=== PATIENT | male | born 1955 | race Caucasian/White ===

== ENCOUNTER 2019-12-07 12:44 | Outpatient (CLI) | payer OTHER, SELFPAY ==
--- NOTE | 2019-12-13 15:42 | P.PCNPFT_ITS ---
PFT Interpretation PFT Interpretation: DOS: 12/07/2019 REQUESTING: Juana Vázquez NP REASON FOR TESTING: Shortness of breath PULMONARY FUNCTION TESTS Spirometry: FEV1 99% normal. FVC 86% normal. FEV1% 80% normal. No change with bronchodilator. Normal spirometry. Lung volumes: Total lung capacity 87% normal. Residual volume 79% normal. No air trapping. Airway resistance mildly increased 153%. Diffusion: DLCO is mildly decreased 66%. Flow volume loop: Normal flow volume loop. IMPRESSION: Normal spirometry, lung volumes with mild decrease in diffusion. No change with bronchodilator. Isolated decrease in diffusion can be seen with anemia, early ILD and pulmonary vascular disease. Clinical correlation is rec ommended. Mary Beth Conely MD
== END 2019-12-07 12:45 | disposition home or self-care (01) ==
PROVIDERS: PCP Internal Medicine; Visit Provider Nurse Practitioner
DX: R06.02 Shortness of breath (principal)
CPT/HCPCS: 94060; 94726; 94729

== ENCOUNTER 2019-12-22 15:54 | Outpatient (CLI) | payer OTHER, SELFPAY ==
--- NOTE | ~2019-12-22 | CT_ITS ---
EXAMINATION:CT chest w con DATE: 12/22/2019 16:38 INDICATION: Shortness of breath. TECHNIQUE: Computed tomography (CT) of the chest was performed with 75 mL Omnipaque 350 intravenous c ontrast. Automated exposure control and iterative reconstruction technique were employed. The dose-le ngth product (DLP) was 611.60 mGy-cm. COMPARISON: Chest 2 views 11/04/2019 FINDINGS: There are widespread peripheral reticular opacities with a lower lung predominance. There a re mild groundglass opacities in the peripheral lower lungs. Calcified left lung nodules are consiste nt with old granulomatous disease. No bronchiectasis or honeycombing. No pleural effusion. The heart size is normal. No pericardial effusion. There is mild mediastinal and bilateral hilar lymphadenopath y. There are gallstones in the gallbladder, which is normal in size. There is a 1.6 cm cyst in the li emily. There is mild thoracic spondylosis. IMPRESSION: 1. Mild chronic interstitial lung disease in a pattern of nonspecific interstitial pneumonia (NSIP) v ersus usual interstitial pneumonia (UIP). 2. Mild mediastinal and bilateral hilar lymphadenopathy, likely reactive. Reviewed, dictated and finalized at location A. CTOR SEMICONDUCTOR IMPRESSION: 1. Mild chronic interstitial lung disease in a pattern of nonspecific interstit ial pneumonia (NSIP) versus usual interstitial pneumonia (UIP). 2. Mild mediastinal and bilateral hilar lymphadenopathy, likely reactive.
[2019-12-22 16:26] LABS: Blood Urea Nitrogen 15 mg/dL (8-26); Estimated Glomerular Filt Rate > 60
== END 2019-12-22 15:55 | disposition home or self-care (01) ==
PROVIDERS: PCP Internal Medicine; Visit Provider Nurse Practitioner
DX: R06.02 Shortness of breath (principal); J84.9 Interstitial pulmonary disease, unspecified
CPT/HCPCS: 71260; Q9967

== ENCOUNTER 2022-06-18 10:15 | Outpatient (CLI) | payer OTHER, SELFPAY ==
[2022-06-18 21:00] LABS: Anion Gap 10 mmol/L (8-16); Blood Urea Nitrogen 13 mg/dL (9-20); Calcium 8.6 mg/dL (8.4-10.2); Carbon Dioxide 26 mmol/L (22-30); Chloride 94 mmol/L (98-107); Estimated Glomerular Filt Rate > 60; Glucose 170 mg/dL (65-110); Magnesium 2.1 mg/dL (1.6-2.3); Potassium 4.9 mmol/L (3.4-5.0); Sodium 130 mmol/L (137-145)
== END 2022-06-18 10:16 | disposition home or self-care (01) ==
PROVIDERS: PCP Internal Medicine; Visit Provider Internal Medicine
DX: E87.1 Hypo-osmolality and hyponatremia (principal); E87.5 Hyperkalemia
CPT/HCPCS: 36415; 80048; 83735

== ENCOUNTER 2022-06-20 08:33 | Outpatient (CLI) | payer OTHER, SELFPAY ==
[2022-06-20 20:18] LABS: Sodium Urine Random 12 meq/L
[2022-06-20 20:54] LABS: Anion Gap 10 mmol/L (8-16); Blood Urea Nitrogen 12 mg/dL (9-20); Calcium 8.7 mg/dL (8.4-10.2); Carbon Dioxide 28 mmol/L (22-30); Chloride 92 mmol/L (98-107); Estimated Glomerular Filt Rate > 60; Glucose 122 mg/dL (65-110); Potassium 5.1 mmol/L (3.4-5.0); Sodium 130 mmol/L (137-145)
[2022-06-23 14:39] LABS: Osmolality, Urine 270 mOsm/kg (50-1200)
== END 2022-06-20 08:34 | disposition home or self-care (01) ==
LOC: ANHGOSHLAB 08:34
PROVIDERS: PCP Internal Medicine; Visit Provider Internal Medicine
DX: E87.1 Hypo-osmolality and hyponatremia (principal)
CPT/HCPCS: 36415; 80048; 82533; 83935; 84300; 84443

== ENCOUNTER 2022-07-10 08:56 | Outpatient (CLI) | payer OTHER, SELFPAY ==
[2022-07-10 19:22] LABS: Alanine Aminotransferase 36 U/L (6-50); Albumin Level 4.2 g/dL (3.5-5.1); Alkaline Phosphatase 98 U/L (38-126); Anion Gap 11 mmol/L (8-16); Aspartate Amino Transferase 40 U/L (17-59); Bilirubin,Total 0.4 mg/dL (0.2-1.3); Blood Urea Nitrogen 17 mg/dL (9-20); Calcium 8.7 mg/dL (8.4-10.2); Carbon Dioxide 26 mmol/L (22-30); Chloride 98 mmol/L (98-107); Cholesterol 126 mg/dL (0-200); Estimated Glomerular Filt Rate > 60; Glucose 111 mg/dL (65-110); HDL Direct 26 mg/dL; Potassium 4.7 mmol/L (3.4-5.0); Sodium 135 mmol/L (137-145); Triglycerides 135 mg/dL (<150)
[2022-07-10 19:33] LABS: LDL Cholesterol Direct 59 mg/dL
[2022-07-10 19:52] LABS: Prostate Specific Antigen 1.7 ng/mL (< OR = 4.0)
[2022-07-10 19:56] LABS: Hemoglobin A1C 6.5 % (<5.7)
== END 2022-07-10 08:57 | disposition home or self-care (01) ==
LOC: ANHGOSHLAB 08:57
PROVIDERS: PCP Internal Medicine; Visit Provider Internal Medicine
DX: E11.9 Type 2 diabetes mellitus without complications (principal); Z12.5 Encounter for screening for malignant neoplasm of prostate
CPT/HCPCS: 36415; 80053; 80061; 83036; 84153; G0103

== ENCOUNTER 2022-09-19 08:52 | Outpatient (CLI) | payer OTHER, SELFPAY ==
[2022-09-19 19:37] LABS: Alanine Aminotransferase 25 U/L (6-50); Albumin Level 4.2 g/dL (3.5-5.1); Alkaline Phosphatase 98 U/L (38-126); Anion Gap 11 mmol/L (8-16); Aspartate Amino Transferase 42 U/L (17-59); Bilirubin,Total 0.6 mg/dL (0.2-1.3); Blood Urea Nitrogen 12 mg/dL (9-20); Calcium 8.7 mg/dL (8.4-10.2); Carbon Dioxide 30 mmol/L (22-30); Chloride 94 mmol/L (98-107); Cholesterol 136 mg/dL (0-200); Estimated Glomerular Filt Rate > 60; Glucose 98 mg/dL (65-110); HDL Direct 30 mg/dL; Potassium 4.5 mmol/L (3.4-5.0); Sodium 135 mmol/L (137-145); Triglycerides 132 mg/dL (<150)
[2022-09-19 19:48] LABS: LDL Cholesterol Direct 72 mg/dL
[2022-09-19 20:03] LABS: Hemoglobin A1C 6.2 % (<5.7)
[2022-09-19 20:10] LABS: Creatinine Urine 102.7 mg/dL
[2022-09-19 20:15] LABS: MALB Creatinine Ratio 17.5 mg/g (0-30)
== END 2022-09-19 08:53 | disposition home or self-care (01) ==
LOC: ANHGOSHLAB 08:54
PROVIDERS: PCP Internal Medicine; Visit Provider Internal Medicine
DX: E11.9 Type 2 diabetes mellitus without complications (principal)
CPT/HCPCS: 36415; 80053; 80061; 82043; 83036

== ENCOUNTER 2022-12-20 09:01 | Outpatient (CLI) | payer MEDICARE, OTHER, SELFPAY ==
[2022-12-20 11:25] LABS: Basophils Percent Auto 0.6 % (0.2-1.2); Eosinophils Absolute Auto 0.3 K/mm3 (0-0.3); Eosinophils Percent Auto 4.6 % (0-4.4); Hematocrit 40.7 % (42.0-52.0); Immature Granulocyte Absolute 0.02 K/mm3 (0.00-0.031); Immature Granulocyte Percent A 0.3 % (0-0.5); Lymphocytes Absolute Auto 1.46 K/mm3 (0.9-3.2); Lymphocytes Percent Auto 23.1 % (18.3-44.2); Mean Corpuscular HGB Conc 34.4 g/dl (32-36); Mean Corpuscular Volume 84.4 fl (80-100); Mean Platelet Volume 9.4 fl (7.4-10.4); Monocytes Absolute Auto 0.5 K/mm3 (0.1-0.6); Monocytes Percent Auto 8.6 % (2.6-8.5); Neutrophils Percent Auto 62.8 % (45.5-73.1); Platelet Count Result 214 k/mm3 (150-375); Red Blood Count 4.82 M/mm3 (4.6-6.20); Red Cell Distribution Width 13.1 % (11.5-14.5); White Blood Count 6.3 K/mm3 (4.5-10.0)
[2022-12-20 11:43] LABS: Hemoglobin A1C 5.8 % (<5.7)
[2022-12-20 19:49] LABS: Alanine Aminotransferase 23 U/L (6-50); Albumin Level 4.3 g/dL (3.5-5.1); Alkaline Phosphatase 89 U/L (38-126); Anion Gap 4 mmol/L (8-16); Aspartate Amino Transferase 28 U/L (17-59); Bilirubin,Total 0.6 mg/dL (0.2-1.3); Blood Urea Nitrogen 13 mg/dL (9-20); Calcium 8.6 mg/dL (8.4-10.2); Carbon Dioxide 29 mmol/L (22-30); Chloride 97 mmol/L (98-107); Estimated Glomerular Filt Rate > 60; Glucose 102 mg/dL (65-110); Potassium 4.7 mmol/L (3.4-5.0); Sodium 130 mmol/L (137-145)
== END 2022-12-20 09:02 | disposition home or self-care (01) ==
LOC: ANHGOSHLAB 09:05
PROVIDERS: PCP Internal Medicine; Visit Provider Internal Medicine
DX: E11.9 Type 2 diabetes mellitus without complications (principal); I10 Essential (primary) hypertension
CPT/HCPCS: 36415; 80053; 83036; 85025

== ENCOUNTER 2022-12-24 11:18 | Outpatient (CLI) | payer MEDICARE, OTHER, SELFPAY ==
[2022-12-24 20:40] LABS: Creatinine Urine 114.3 mg/dL
[2022-12-24 20:41] LABS: Sodium Urine Random 35 meq/L
[2022-12-26 21:38] LABS: Osmolality, Urine 510 mOsm/kg (50-1200)
== END 2022-12-24 11:19 | disposition home or self-care (01) ==
LOC: ANHGOSHLAB 11:21
PROVIDERS: PCP Internal Medicine; Visit Provider Internal Medicine
DX: E87.1 Hypo-osmolality and hyponatremia (principal)
CPT/HCPCS: 82570; 83935; 84300

== ENCOUNTER 2023-01-24 13:16 | Outpatient (CLI) | payer MEDICARE, OTHER, SELFPAY ==
[2023-01-24 19:15] LABS: Anion Gap 7 mmol/L (8-16); Blood Urea Nitrogen 14 mg/dL (9-20); Calcium 8.7 mg/dL (8.4-10.2); Carbon Dioxide 28 mmol/L (22-30); Chloride 98 mmol/L (98-107); Estimated Glomerular Filt Rate > 60; Glucose 109 mg/dL (65-110); Potassium 4.9 mmol/L (3.4-5.0); Sodium 133 mmol/L (137-145)
== END 2023-01-24 13:17 | disposition home or self-care (01) ==
LOC: ANHGOSHLAB 13:18
PROVIDERS: PCP Internal Medicine; Visit Provider Internal Medicine
DX: E87.1 Hypo-osmolality and hyponatremia (principal)
CPT/HCPCS: 36415; 80048

== ENCOUNTER 2023-07-31 09:49 | Outpatient (CLI) | payer MEDICARE, OTHER, SELFPAY ==
[2023-07-31 18:41] LABS: Hematocrit 42.8 % (42.0-52.0); Hemoglobin 14.4 g/dL (14.0-18.0); Mean Corpuscular HGB Conc 33.6 g/dl (32-36); Mean Corpuscular Volume 86.1 fl (80-100); Mean Platelet Volume 9.9 fl (7.4-10.4); Platelet Count Result 217 k/mm3 (150-375); Red Blood Count 4.97 M/mm3 (4.6-6.20); Red Cell Distribution Width 13.1 % (11.5-14.5); White Blood Count 6.6 K/mm3 (4.5-10.0)
[2023-07-31 19:14] LABS: Alanine Aminotransferase 28 U/L (6-50); Albumin Level 4.2 g/dL (3.5-5.1); Alkaline Phosphatase 74 U/L (38-126); Anion Gap 14 mmol/L (8-16); Aspartate Amino Transferase 29 U/L (17-59); Bilirubin,Total 0.6 mg/dL (0.2-1.3); Blood Urea Nitrogen 11 mg/dL (9-20); Calcium 7.8 mg/dL (8.4-10.2); Carbon Dioxide 19 mmol/L (22-30); Chloride 95 mmol/L (98-107); Estimated Glomerular Filt Rate > 60; Glucose 113 mg/dL (65-110); Potassium 4.6 mmol/L (3.4-5.0); Sodium 128 mmol/L (137-145)
[2023-07-31 19:55] LABS: Hemoglobin A1C 6.3 % (<5.7)
[2023-08-01 16:21] LABS: Prostate Specific Antigen 1.8 ng/mL (< OR = 4.0)
== END 2023-07-31 09:50 | disposition home or self-care (01) ==
PROVIDERS: PCP Internal Medicine; Visit Provider Internal Medicine
DX: E11.9 Type 2 diabetes mellitus without complications (principal); E87.1 Hypo-osmolality and hyponatremia; I10 Essential (primary) hypertension; J84.112 Idiopathic pulmonary fibrosis; Z12.5 Encounter for screening for malignant neoplasm of prostate; K21.9 Gastro-esophageal reflux disease without esophagitis
CPT/HCPCS: 36415; 80053; 83036; 84153; 85027; G0103

== ENCOUNTER 2023-09-18 08:24 | Outpatient (CLI) | payer MEDICARE, OTHER, SELFPAY ==
[2023-09-18 19:13] LABS: Anion Gap 9 mmol/L (8-16); Blood Urea Nitrogen 13 mg/dL (9-20); Calcium 8.5 mg/dL (8.4-10.2); Carbon Dioxide 28 mmol/L (22-30); Chloride 97 mmol/L (98-107); Estimated Glomerular Filt Rate > 60; Glucose 95 mg/dL (65-110); Potassium 4.9 mmol/L (3.4-5.0); Sodium 134 mmol/L (137-145)
== END 2023-09-18 08:25 | disposition home or self-care (01) ==
PROVIDERS: PCP Internal Medicine; Visit Provider Internal Medicine
DX: E87.1 Hypo-osmolality and hyponatremia (principal)
CPT/HCPCS: 36415; 80048

== ENCOUNTER 2024-02-05 09:43 | Outpatient (CLI) | payer MEDICARE, OTHER, SELFPAY ==
[2024-02-05 13:19] LABS: Basophils Percent Auto 0.5 % (0.2-1.2); Eosinophils Absolute Auto 0.4 K/mm3 (0-0.3); Eosinophils Percent Auto 5.2 % (0-4.4); Hematocrit 44.5 % (42.0-52.0); Hemoglobin 14.5 g/dL (14.0-18.0); Immature Granulocyte Absolute 0.05 K/mm3 (0.00-0.031); Immature Granulocyte Percent A 0.7 % (0-0.5); Lymphocytes Absolute Auto 1.69 K/mm3 (0.9-3.2); Mean Corpuscular HGB Conc 32.6 g/dl (32-36); Mean Corpuscular Hemoglobin 28.7 pg (26-34); Mean Corpuscular Volume 87.9 fl (80-100); Mean Platelet Volume 10.1 fl (7.4-10.4); Monocytes Absolute Auto 0.7 K/mm3 (0.1-0.6); Neutrophils Absolute Auto 4.5 K/mm3 (1.3-6.7); Neutrophils Percent Auto 61.6 % (45.5-73.1); Platelet Count Result 225 k/mm3 (150-375); Red Blood Count 5.06 M/mm3 (4.6-6.20); Red Cell Distribution Width 13.6 % (11.5-14.5); White Blood Count 7.4 K/mm3 (4.5-10.0)
[2024-02-05 13:21] LABS: Alanine Aminotransferase 27 U/L (6-50); Albumin Level 4.3 g/dL (3.5-5.1); Alkaline Phosphatase 89 U/L (38-126); Anion Gap 5 mmol/L (4-12); Aspartate Amino Transferase 49 U/L (17-59); Bilirubin,Total 0.7 mg/dL (0.2-1.3); Blood Urea Nitrogen 15 mg/dL (9-20); Calcium 9.3 mg/dL (8.4-10.2); Carbon Dioxide 28 mmol/L (22-30); Chloride 98 mmol/L (98-107); Estimated Glomerular Filt Rate > 60; Glucose 122 mg/dL (65-110); Potassium 5.1 mmol/L (3.4-5.0); Sodium 131 mmol/L (137-145)
[2024-02-05 19:40] LABS: Hemoglobin A1C 6.2 % (<5.7)
== END 2024-02-05 09:44 | disposition home or self-care (01) ==
LOC: ANHGOSHLAB 09:45
PROVIDERS: PCP Internal Medicine; Visit Provider Internal Medicine
DX: E11.9 Type 2 diabetes mellitus without complications (principal); E22.2 Syndrome of inappropriate secretion of antidiuretic hormone; I10 Essential (primary) hypertension; J84.112 Idiopathic pulmonary fibrosis
CPT/HCPCS: 36415; 80053; 83036; 85025

== ENCOUNTER 2024-08-19 09:46 | Outpatient (CLI) | payer MEDICARE, OTHER, SELFPAY ==
[2024-08-19 18:52] LABS: Basophils Absolute Auto 0.1 K/mm3 (0.0-0.1); Basophils Percent Auto 0.7 % (0.2-1.2); Eosinophils Absolute Auto 0.3 K/mm3 (0-0.3); Eosinophils Percent Auto 3.7 % (0-4.4); Hematocrit 45.5 % (42.0-52.0); Hemoglobin 15.1 g/dL (14.0-18.0); Immature Granulocyte Absolute 0.05 K/mm3 (0.00-0.031); Immature Granulocyte Percent A 0.7 % (0-0.5); Lymphocytes Absolute Auto 1.72 K/mm3 (0.9-3.2); Lymphocytes Percent Auto 23.3 % (18.3-44.2); Mean Corpuscular HGB Conc 33.2 g/dl (32-36); Mean Corpuscular Hemoglobin 28.5 pg (26-34); Mean Corpuscular Volume 85.8 fl (80-100); Mean Platelet Volume 9.7 fl (7.4-10.4); Monocytes Absolute Auto 0.6 K/mm3 (0.1-0.6); Monocytes Percent Auto 8.4 % (2.6-8.5); Neutrophils Absolute Auto 4.7 K/mm3 (1.3-6.7); Neutrophils Percent Auto 63.2 % (45.5-73.1); Platelet Count Result 214 k/mm3 (150-375); Red Cell Distribution Width 13.6 % (11.5-14.5); White Blood Count 7.4 K/mm3 (4.5-10.0)
[2024-08-19 19:25] LABS: Alanine Aminotransferase 30 U/L (6-50); Albumin Level 4.2 g/dL (3.5-5.1); Alkaline Phosphatase 83 U/L (38-126); Anion Gap 7 mmol/L (4-12); Aspartate Amino Transferase 33 U/L (17-59); Bilirubin,Total 0.6 mg/dL (0.2-1.3); Blood Urea Nitrogen 17 mg/dL (9-20); Calcium 8.8 mg/dL (8.4-10.2); Carbon Dioxide 28 mmol/L (22-30); Chloride 96 mmol/L (98-107); Cholesterol 133 mg/dL (0-200); Estimated Glomerular Filt Rate > 60; Glucose 135 mg/dL (65-110); HDL Direct 29 mg/dL; Sodium 131 mmol/L (137-145); Triglycerides 139 mg/dL (<150)
[2024-08-19 19:36] LABS: LDL Cholesterol Direct 71 mg/dL
[2024-08-19 19:51] LABS: Prostate Specific Antigen 1.7 ng/mL (< OR = 4.0)
[2024-08-19 21:42] LABS: Hepatitis C Virus Antibody Negative (Negative)
== END 2024-08-19 09:47 | disposition home or self-care (01) ==
LOC: ANHGOSHLAB 09:47
PROVIDERS: PCP Internal Medicine; Visit Provider Internal Medicine
DX: E22.2 Syndrome of inappropriate secretion of antidiuretic hormone (principal); E11.9 Type 2 diabetes mellitus without complications; Z12.5 Encounter for screening for malignant neoplasm of prostate; I10 Essential (primary) hypertension; Z11.59 Encounter for screening for other viral diseases
CPT/HCPCS: 36415; 80053; 80061; 83036; 84153; 85025; 86803; G0103

== ENCOUNTER 2024-09-28 10:03 | Outpatient (CLI) | payer MEDICARE, OTHER, SELFPAY ==
--- NOTE | ~2024-09-28 | XR_ITS ---
XR foot LT min 3V Ordering provider: Davidson Weiss DO History: . R22.42 - Localized swelling, mass and lump, left lower limb . Comparison: None. FINDINGS: BONES: Fracture in the proximal metaphysis of the proximal phalanx of the little toe. Calcaneal spur. JOINT SPACES: Normal. No tarsal coalition. SOFT TISSUES: Normal. IMPRESSION: Fracture in the proximal metaphysis of the proximal phalanx of the little toe. No significant displac ement.. Reviewed, dictated and finalized at location A. PLANT OPERATOR IMPRESSION: Fracture in the proximal metaphysis of the proximal phalanx of the little toe. No significant displacement..
== END 2024-09-28 10:04 | disposition home or self-care (01) ==
LOC: GOSHIMG 10:04
PROVIDERS: PCP Internal Medicine; Visit Provider Internal Medicine
DX: S92.512A Displaced fracture of proximal phalanx of left lesser toe(s), initial encounter for closed fracture (principal); X58.XXXA Exposure to other specified factors, initial encounter
CPT/HCPCS: 73630

== ENCOUNTER 2024-12-10 08:27 | Outpatient (CLI) | payer MEDICARE, OTHER, SELFPAY ==
--- OUTSIDE RECORDS SUMMARY | 2024-12-10 08:37 | XMS_ITS | Clinical Summary ---
Author Organization [facility] [employer] Address [address] [place] [address] Care Team Providers Care Educational Resource Coordinator Name Role Phone Unavailable Primary Care Provider Unavailabl e Source Comments [facility] [employer],non-owned Affiliates and Associated Physician Practices is amultiple site organization consisting of ambulatory clinics and hospital sitesin [place], [place], [place] and [place]. This disclosure is being madepursuant to the Care Everywhere program and may not contain all information available regarding this patient. Last updated 18.[facility] [employer] Allergies No known active allergies Medications Be aware that medications may not be up to date on this document. Always verify current medications with the patient. No known medications Family History Medical History Relation Name Comments Cancer Father lung to bone Diabetes Maternal Aunt Relation Name Status Comments Father Maternal Aunt Social History Tobacco Use Types Packs/Day Years Used Date Smoking Tobacco: Former Alcohol Use Standard Drinks/Week Comments No 0 (1 standard drink = 0.6 oz pur e alcohol) Sex and Gender Information Value Date Recorded Sex Assigned at Not on file Gender Identity Not on file Sexual Orientation Not on file Last Filed Vital Signs Vital Sign Reading Time Taken Comments Blood Pressure 159/109 04/11/2015 10:07 AM CDT Pulse 59 04/11/2015 10:11 AM CDT Temperature 36.3 C (97.4 F) 04/11/2015 10:12 AM CDT Respiratory Rate 21 04/11/2015 10:11 AM CDT Oxygen Saturation 96% 04/11/2015 10:06 AM CDT Inhaled Oxygen Concentration - - Weight 110.2 kg (243 lb) 04/11/2015 8:44 AM CDT Height 181.6 cm (5' 11.5 ) 04/11/2015 8:44 AM CD T Body Mass Index 33.42 04/11/2015 8:44 AM CDT Plan of Treatment Health Maintenance Due Date Last Done Comments COLOGUARD (AGES 45-75) - COL ON CA SCREENING 1955 COLON MONITORING 1955 COLONOSCOPY - COLON CA SCREENING 1957 CT COLONOGRAPHY - COLON CA SCREENING 1955 Colorectal Cancer Screening 1955 FIT - COLON CA SCREENING 1955 FLEX SIG - COLON CA SCREENING 1955 LIPID TESTING 1955 HEPATITIS C SCREENING 10/04/1975 DTAP/TDAP/TD VACCINES (1 - Tdap) 1976 PNEUMOCOCCAL VACCINE 50+ (1 of 1 - PCV) 2007 ZOSTER VACCINE (1 of 2) 2007 AAA SCREENING 2022 COVID-19 VACCINE (1 - 2023-2 5 season) 2024 INFLUENZA VACCINE (#1) 2024 DEPRESSION SCREENING 11/03/2024 Respiratory Syncytial Virus (RSV) Vaccine Pt: or over 60 yrs (1 - 1-dose 75+ series) 2032 HEPATITIS B VACCINE Aged Out No longe r eligible based on patient's age to complete this topic HIB VACCINE Aged Out No longer eligi ble based on patient's age to complete this topic HPV VACCINE Aged Out No longer eligi ble based on patient's age to complete this topic MENINGOCOCCAL (Group B) VACCINE Aged Out No longer eligible based on patient's age to complete this topic MENINGOCOCCAL VACCINE Aged Out No gualberto binta eligible based on patient's age to complete [place] [address] Gage Fraser Personal/Family Self [address] [place] [address]
--- OUTSIDE RECORDS SUMMARY | 2024-12-10 08:37 | XMS_ITS | Patient Health Summary ---
Author Organization [facility] Address [address] [place] [address] Care Team Providers Care Fleet Operations Manager Name Role Phone Unavailable Primary Care Provider Unavailabl e Note from [facility],non-owned Affiliates and Associated Physician Practices is amultiple site organization consisting of ambulatory clinics and hospital sitesin [place] and [place]. This disclosure is being madepursuant to the Care Everywhere program and may not contain all information available regarding this patient. Last updated 18.[facility] Allergies No known active allergies Medications Be aware that medications may not be up to date on this document. Always verify current medications with the patient. No known medications Social History Tobacco Use Types Packs/Day Years [...] Mass Index 33.42 04/11/2015 8:44 AM CDT Procedures * ESOPHAGOGASTRODUODENOSCOPY (EGD) BIOPSY(Performed 04/11/2015) Performed for Abdominal pain, epigastric, Nausea alone * ESOPHAGOGASTRODUODENOSCOPY (EGD) DIAGNOSTIC(Performed 04/11/2015) Performed for Abdominal pain, epigastric, Nausea alone * HELICOBACTER PYLORI UREASE (STL)(Performed 04/11/2015) Performed for Abdominal pain, epigastric [789.06], Nausea alone [787.02] * PATHOLOGY TISSUE EXAM (STL)(Performed 04/11/2015) Performed for Abdominal pain, epigastric [789.06], Nausea alone [787.02] * EGD(Performed 04/11/2015) Results * HELICOBACTER PYLORI UREASE (STL) (04/11/2015 9:35 AM CDT) Helicobacter pylori Urease Initial Negative Negative 04/12/2015 3:48 PM CDT [facility] Helicobacter pylori Urease Final Negative Negative 04/12/2015 3:48 PM CDT [facility] Microbiology GASTRIC ANTRAL BIOPSY SPECIMEN / Unknown 04/11/2015 9:35 AM CDT 04/11/2015 1:07 PM CDT Bladimir Castillo MD LAB - MICROBIOLOG Y ORDERABLES Performing Organization Address City/State/[facility] Co de Phone Number [facility] [address] [place], [place] [id number] * GROSS + MICRO EXAM (STL) (04/11/2015 9:35 AM CDT) Case Report Surgical Pathology Report Case: [id number] Authorizing Provider: Bladimir Castillo MD Collected: 04/11/2015 09:35 AM Ordering Location: [facility] Received: 04/11/2015 01:13 PM Pathologist: Aliyah Pruett MD Specimens: A) - Gastric Biopsy B) - Esophageal Biopsy 04/12/2015 1:25 PM CDT [facility] Final Diagnosis 1. Gastric mucosa, biopsy: -- Mild vascular congestion 2. Esophagus, biopsy: -- Focal mild chronic inflammation GMC/pc 04/12/2015 1:25 PM CDT [facility] Gross Description Received are 2 containers, each labeled Gage Fraser. Container 1 is labeled gastric biopsy. The container holds 3 pink-marquez tissue fragments measuring from 0.1 cm up to 0.5 cm in greatest dimension. Specimen is entirely submitted in cassette labeled A1. Container 2 is labeled esophageal biopsy. The container holds multiple pink-marquez and white tissue fragments measuring from 0.2 cm up to 0.5 cm in greatest dimension. Specimen is marked with hematoxylin and entirely submitted in cassette labeled B1. DYT/arm 04/12/2015 1:25 PM CDT [facility] Microscopic Description 1. Sections show fragments of gastric mucosa with mild vascular congestion. No evidence of atypia or malignancy is seen. An immunostain for H. pylori is negative. 2. Sections show fragments of esophageal squamous mucosa with focal mild chronic inflammation. No evidence of intestinal metaplasia is seen. A PAS and Alcian blue stain is negative for goblet cells. All of the stain(s), control slide(s) and test tissue slide(s) were judged as technically acceptable. GMC/pc 04/12/2015 1:25 PM CDT [facility] Pathology/Cytology GASTRIC BIOPSY SPECIMEN / Unknown 04/11/2015 9:35 AM CDT 04/11/2015 1:13 PM CDT Miscellaneous samples (specimen) ESOPHAGEAL BIOPSY SPECIMEN / Unknown 04/11/2015 9:35 AM CDT 04/11/2015 1:13 PM CDT Bladimir Castillo MD LAB - PATHOLOGY/C YTOLOGY ORDERABLES [facility] [address] [place] [address] * EGD (04/11/2015 9:15 AM CDT) Report Endoscopy POC _ Patient Name: Gage Fraser Procedure Date: 04/11/2015 9:15 AM Date of : 1955 Admit Type: Outpatient Age: 59 Gender: Male Attending MD: Bladimir Castillo MD _ Procedure: Upper GI endoscopy Indications: Epigastric abdominal pain Providers: Bladimir Castillo MD (Doctor), Renetta Iraheta RN, Moriah Fowler, Pediatric Sports Medicine Specialist Referring MD: Davidson Weiss (Referring MD) Medicines: See the Anesthesia note for documentation of the administered medications Complications: No immediate complications. _ Procedure: After obtaining informed consent, the endoscope was passed under direct vision. Throughout the procedure, the patient's blood pressure, pulse, and oxygen saturations were monitored continuously. The Endoscope was introduced through the mouth, and advanced to the second part of duodenum. The upper GI endoscopy was accomplished without difficulty. The patient tolerated the procedure well. Impression: - LA Grade A reflux esophagitis. Biopsied. - Erythematous mucosa in the antrum. Biopsied. - Normal examined duodenum. Findings: LA Grade A (one or more mucosal breaks less than 5 mm, not extending between tops of 2 mucosal folds) esophagitis was found 42 to 44 cm from the incisors. Biopsies were taken with a cold forceps for histology from distal and mid esophagus. Estimated blood loss was minimal. Patchy mildly erythematous mucosa was found in the gastric antrum. Biopsies were taken with a cold forceps for histology. Biopsies were taken with a cold forceps for Helicobacter pylori testing using CLOtest. Estimated blood loss was minimal. The examined duodenum was normal. _ Recommendation: - Discharge patient to home. - Resume previous diet. - Continue present medications. - Telephone my office for pathology results in 2 days. Procedure Code(s): --- Professional --- 40638, Esophagogastroduo denoscopy, flexible, transoral; with biopsy, single or multiple --- Technical --- 10150, Esophagogastroduo denoscopy, flexible, transoral; with biopsy, single or multiple Diagnosis Code(s): --- Professional --- 530.11, Reflux esophagitis 537.9, Unspecified disorder of stomach and duodenum 789.06, Abdominal pain, epigastric --- Technical --- 530.11, Reflux esophagitis 537.9, Unspecified disorder of stomach and duodenum 789.06, Abdominal pain, epigastric CPT copyright 2013 [employer]. All rights reserved. The codes documented in this report are preliminary and upon nutrition aide review may be revised to meet current compliance requirements. Bladimir Castillo MD 04/11/2015 9:43 AM Number of Addenda: 0 Note Initiated On: 04/11/2015 9:15 AM [facility] 04/11/2015 9:15 AM CDT Bladimir Castillo MD GI PROCEDURE ORDE [facility]
--- OUTSIDE RECORDS SUMMARY | 2024-12-10 08:37 | XMS_ITS | Continuity of Care Document ---
Author Name [facility] Organization [facility] Care Team Providers Care Traffic Rate Clerk Name Role Phone [facility] Unavailable Unavailable Problems Combined list of problems from Department of Defense and Veterans Affairs facilities. It does not include entries that were removed or entered in error. Problem Status Onset Date Problem Type Date of Resolution Comments Source joint pain, localized in the hip Active Condition Left hip/SI region pain, suspect piriformis syndrome based on clinical exam. Showed pt multiple exercise and recommended daily regimen of stretching, in addition to general stretching for additional flexibility. Will try short course of naproxen to karon DoD bursitis Active Condition 50 yom wit h bursitis vs piriformis syndrome favoring bursitis. Motrin 800 mg po qid, rtc if worsening or failing to improve in one month. Will buy at pharmacy. [facility] routine history and physical Inactive Condition Follow up with routine labwork. RTC 1 year for annual physical. [facility] skin disorders appendage hair follicle folliculitis Active Condition I&D of lesion that was painful and a few cc of pus extruded; - sterile dressing applied; patient to finish out course of Tequin; f/u if increased fevers, pain, or other concerns DoD overuse syndrome Inactive Condition [facility] Occupational Therapy Inactive Condition DoD Medications Combined list of outpatient medications from Department of Defense and Veterans Affairs facilities.Medications provided include 1) outpatient medications from the last 15 months, and 2) patient-reported medications. Medication Details Route Status Patient Instructions Prescription Expires Prescription Number Last Dispense Date Ordering Provider Order Date Order Qty Source AMLODIPINE BESYLATE (amlodipine besylate), 2.5 MG, TABLET, ORAL, [facility], 90 ea. BOTTLE Active [id number] 4 2023 90 Pharmac y Data Transac tion Service Facilit y HYDROXYZINE HCL (HYDROXYZIN E HCL), 25 MG, TABLET, ORAL, TEVA [place], 500 ea. BOTTLE Active [id number] 4 2023 90 Pharmac y Data Transac tion Service Facilit y LOSARTAN POTASSIUM (LOSARTAN POTASSIUM), 50 MG, TABLET, ORAL, [facility], 1000 ea. BOTTLE Active [id number] 4 2023 90 Pharmac y Data Transac tion Service Facilit y PANTOPRAZOL E SODIUM (PANTOPRAZO LE SODIUM), 40 MG, TABLET DR, ORAL, MYLAN, 90 ea. BOTTLE Active [id number] 4 2023 90 Pharmac y Data Transac tion Service Facilit y PIRFENIDONE (pirfenidon e), 801 MG, TABLET, ORAL, [facility], 90 ea. BOTTLE Active [id number] 4 2023 90 Pharmac y Data Transac tion Service Facilit y PIRFENIDONE (pirfenidon e), 801 MG, TABLET, ORAL, [facility], 90 ea. BOTTLE Cancele d [id number] : 2023 0 Pharmac y Data Transac tion Service Facilit y PIRFENIDONE (pirfenidon e), 801 MG, TABLET, ORAL, [facility], 90 ea. BOTTLE Cancele d [id number] : 2023 0 Pharmac y Data Transac tion Service Facilit y TIMOLOL MALEATE (TIMOLOL MALEATE), 0.5%, DROPS, OPHTHALMIC, [facility], 5 ml DROP BTL Active [id number] 4 2023 5 Pharmac y Data Transac tion Service Facilit y TIMOLOL MALEATE (TIMOLOL MALEATE), 0.5%, DROPS, OPHTHALMIC, [facility], 5 ml DROP BTL Active [id number] 4 2023 5 Pharmac y Data Transac tion Service Facilit y Allergies, Adverse Reactions, Alerts Combined list of allergies from Department of Defense and Veterans Affairs facilities. It does not include entries that were removed or entered in error. Substance Category Reaction Severity Reaction type Status Date Reported Comments Source NO OUTPUT FOR NCID 235108 Drug allergy (disorder) active 03/25/2008 [facility] Chris SUAZO ([facility]) Immunizations Combined list of available immunizations from the Department of Defense and Veterans Affairs facilities. Immunization Series Date Given Administered By Site Reaction Lot Number CVX Code Drug Food Taster Status Comments Source COVID-19, mRNA, LNP-S, PF, 30 mcg/0.3 mL dose, sampson-sucrose 2021 ALUL, () Not Given COVID-19, mRNA, LNP-S, PF, 30 mcg/0.3 mL dose, sampson-sucr ose DoD zoster recombinant 2020 GARCIA, () Not Given zoster recombina nt DoD Influenza, injectable, MDCK, preservative free, quadrivalent 2020 GARCIA, () Not Given Influenza , injectabl e, MDCK, preservat vivian free, quadrival ent DoD zoster recombinant 2020 ALUL, () Not Given zoster recombina nt DoD Influenza, injectable, MDCK, preservative free, quadrivalent 2019 ALUL, () Not Given Influenza , injectabl e, MDCK, preservat vivian free, quadrival ent DoD pneumococcal polysaccharid e PPV23 2019 ALUL, () Not Given pneumococ dylon polysacch aride PPV23 DoD influenza, injectable, quadrivalent, preservative free 2018 ALUL, () Not Given influenza , injectabl e, quadrival ent, preservat vivian free DoD Influenza, seasonal, injectable, preservative free 2016 ALUL, () Not Given Influenza , seasonal, injectabl e, preservat vivian free DoD Influenza, seasonal, injectable, preservative free 2014 ALUL, () Not Given Influenza , seasonal, injectabl e, preservat vivian free DoD Influenza, seasonal, injectable, preservative free 2013 ALUL, RUSHDI DO () Not Given Influenza , seasonal, injectabl e, preservat vivian free DoD Encounters Combined list of: 1) Encounters from Department of Veterans Affairs facilities going backup to the last 18 months, not all VA inpatient encounters are included; 2) Encounters from the Department of Defense facilities going backup to 280 months. Location Location Details Encounter Type Encounter Number Reason For Visit Attending Provider ADM Date DC Date Status Disposition Source [address] [place] [address] Chris SUAZO ([facility] OUTPATIENT [id number] neck strain with rad sx MARTY ALBERTO 07/04 Released with Work/Duty Limitations [address] [place] [address] Chris SUAZO ([facility])(O t Neuromu sculosk eletal Clinic) [facility] Chris [facility]AZ[facility] ([facility])(Occ upational Therapy) OUTPATIENT [id number] AMEE BOYD R 07/05 Released w/o Limitations [facility] Chris SUAZO ([facility])(O ccupati onal Therapy ) [facility] Chris JEREZB ([facility])(Ot Neuromusc uloskelet al Clinic) OUTPATIENT [id number] MARTY ALBERTO 07/16 Released with Work/Duty Limitations [facility] Chris SUAZO ([facility])(O t Neuromu sculosk eletal Clinic) [facility] Chris JEREZB ([facility])(Occ upational Therapy) OUTPATIENT [id number] re-ck [place] tightne ss AMEE BOYD R 08/02 Released w/o Limitations [facility] Chris JEREZB ([facility])(O ccupati onal Therapy ) [facility] Chris SUAZO ([facility])(Sco [facility] Tm Blue) OUTPATIENT [id number] 48 hr f/u reg/per ÁNGEL Ulloa 01/24 Released w/o Limitations [facility] Chris SUAZO ([facility])(S cott [facility] Tm Blue) [facility] Group Chris SUAZO ([facility])(Sco tt [facility] Tm Blue) OUTPATIENT [id number] MERY VARGHESE 05/23 Released w/o Limitations [facility] Chris SUAZO ([facility])(S cott [facility] Tm Blue) [facility] Chris SUAZO ([facility])(Sco tt [facility] Tm Blue) OUTPATIENT [id number] hip DEBORAH MARLEY 02/06 Released w/o Limitations [facility] Chris JEREZB ([facility])(S cott [facility] Tm Blue) [facility] Chris SUAZO ([facility])(Sco tt [facility] Tm Blue) OUTPATIENT [id number] hip problem JORGE YOUSIF 05/22 Released w/o Limitations [facility] Chris JEREZB ([facility])(S cott [facility] Tm Blue) Procedures Combined list of: 1) Procedures from Department of Veterans Affairs facilities [facility], not all VA non-surgical procedures are included; 2) All procedures from the Department of Defense facilities. Procedure Procedure Type Code Date Perfomer Comments [facility] e INCISION AND DRAINAGE OF ABSCESS (EG, CARBUNCLE, SUPPURATIVE HIDRADENITIS, CUTANEOUS OR SUBCUTANEOUS ABSCESS, CYST, FURUNCLE, OR PARONYCHIA); SIMPLE OR SINGLE 01/24/2005 [facility] SELF-CARE/HOME MANAGMENT TRAIN (EG,ACT OF DAILY LIVING (ADL) &COMPENSAT TRAIN,MEAL PREPARATION,SAFETY PROCS,AND INSTRUCT IN USE OF ASST TECHNOLOGY DEV/ADPT EQUIP) DIR ONE-ON-ONE CONT,EA 15 MINUTES 08/02/2004 [facility] OCCUPATIONAL THERAPY EVALUATION 07/16/2004 [facility] SELF-CARE/HOME MANAGMENT TRAIN (EG,ACT OF DAILY LIVING (ADL) &COMPENSAT TRAIN,MEAL PREPARATION,SAFETY PROCS,AND INSTRUCT IN USE OF ASST TECHNOLOGY DEV/ADPT EQUIP) DIR ONE-ON-ONE CONT,EA 15 MINUTES 07/05/2004 [facility] OCCUPATIONAL THERAPY EVALUATION 07/04/2004 [facility] Incision And Drainage Of Skin Absce , Simple Incision And Drainage Of Skin Abscess, Simple 29047 01/25/2005 ÁNGEL LEIVA [facility] Patient Training And Self-Care Skills Patient Training And Self-Care Skills [id number] 08/03/2004 AMEE INGRAM [facility] Occupational Therapy Evaluation Occupational Therapy Evaluation [id number] 07/16/2004 MARTY ALBERTO [facility] Patient Training And Self-Care Skills Patient Training And Self-Care Skills 77711 07/10/2004 AMEE INGRAM DoD Social History Combined list of available smoking, tobacco, and other social history from Department of Defense and Veterans Affairs facilities. Social History Type Response Date Comment [facility] e This section is an empty social history section. [facility]D
--- OUTSIDE RECORDS SUMMARY | 2024-12-10 08:37 | XMS_ITS | Referral Summary ---
Author Organization [facility] [employer] Address [address] [place] [address] Care Team Providers Care Binder Operator Name Role Phone Unavailable Primary Care Provider Unavailabl e Source Comments [facility] [employer],non-owned Affiliates and Associated Physician Practices is amultiple site organization consisting of ambulatory clinics and hospital sitesin [place], [place], [place] and [place]. This disclosure is being madepursuant to the Care Everywhere program and may not contain all information available regarding this patient. Last updated 18.[facility] [employer] Allergies No known active allergies Medications Be [...] 04/11/2015 8:44 AM CDT Plan [place] Treatment [place] [address] Gage Fraser Personal/Family Self [address] [place] [address] [place] [address]
[2024-12-10 14:36] LABS: Anion Gap 12 mmol/L (4-12); Blood Urea Nitrogen 15 mg/dL (9-20); Calcium 8.9 mg/dL (8.4-10.2); Carbon Dioxide 26 mmol/L (22-30); Chloride 97 mmol/L (98-107); Estimated Glomerular Filt Rate > 60; Glucose 129 mg/dL (65-110); Sodium 135 mmol/L (137-145)
[2024-12-10 15:19] LABS: Creatinine Urine 115.4 mg/dL
[2024-12-10 15:24] LABS: MALB Creatinine Ratio 10.9 mg/g (0-30); Microalbumin Urine Random 12.6 mg/L (0-16.7)
== END 2024-12-10 08:28 | disposition home or self-care (01) ==
LOC: ANHGOSHLAB 08:29
PROVIDERS: PCP Internal Medicine; Visit Provider Internal Medicine
DX: E11.9 Type 2 diabetes mellitus without complications (principal); E22.2 Syndrome of inappropriate secretion of antidiuretic hormone
CPT/HCPCS: 36415; 80048; 82043; 83036

== ENCOUNTER 2025-06-23 12:58 | Outpatient (CLI) | payer MEDICARE, OTHER, SELFPAY ==
--- OUTSIDE RECORDS SUMMARY | 2025-06-23 04:31 | XMS_ITS | Continuity of Care Document ---
Author Name [facility] Organization [facility] Care Team Providers Care Professional Services Specialist Name Role Phone [facility] Unavailable Unavailable Problems Combined list of problems [...] short course of naproxen to karon DoD BURSITIS Active Condition 50 yom wit h bursitis vs piriformis syndrome favoring bursitis. Motrin 800 mg po qid, rtc if worsening or failing to improve in one month. Will buy at pharmacy. [facility] NORMAL ROUTINE HISTORY AND PHYSICAL Inactive Condition Follow up with routine labwork. RTC 1 year for annual physical. DoD FOLLICULITIS Active Condition I&D of lesion that was painful and a few cc of pus extruded; - sterile dressing applied; patient to finish out course of Tequin; f/u if increased fevers, pain, or other concerns DoD OVERUSE SYNDROME Inactive Condition [facility] Occupational Therapy Inactive Condition [facility] Medications Combined list of outpatient medications from Department of Defense and Veterans Affairs facilities.Medications provided include 1) outpatient medications from the last 15 months, and 2) patient-reported medications. Medication Details Route Status Patient Instructions Prescription Expires Prescription Number Last Dispense Date Ordering Provider Order Date Order Qty Source PIRFENIDONE (pirfenidon e), 801 MG, TABLET, ORAL, [employer] [place], 90 ea. BOTTLE Active [id number] 2023 90 Pharmac y Data Transac tion Service Facilit y Allergies, Adverse Reactions, Alerts Combined list of allergies from Department of Defense and Veterans Affairs facilities. It does not include entries that were removed or entered in error. Substance Category Reaction Severity Reaction type Status Date Reported Comments Source NO OUTPUT FOR NCID [id number] Drug allergy (disorder) active 03/25/2008 [facility] Chris SUAZO ([facility] Immunizations Combined list of available immunizations from the Department of Defense and Veterans Affairs facilities. Immunization Series Date Given Administered By Site Reaction Lot Number CVX Code Drug Barrel Drainer Status Comments Source COVID-19, mRNA, LNP-S, PF, [...] ADM Date DC Date Status Disposition Source [address] [place] [address] Chris SUAZO ([facility]Ot Neuromusc uloskelet al Clinic) OUTPATIENT [id number] neck strain with rad sx MARTY ALBERTO 07/04 Released with Work/Duty Limitations [facility] Chris [facility]EREZB ([facility]O t Neuromu sculosk eletal Clinic) [facility] Chris [facility] ([facility])(Occ upational Therapy) OUTPATIENT [id number] AMEE BOYD R 07/05 Released w/o Limitations [facility] Chris JEREZB ([facility]O ccupati onal Therapy ) [facility] Chris [facility]EREZ[facility] ([facility]Ot Neuromusc uloskelet al Clinic) OUTPATIENT [id number] MARTY ALBERTO 07/16 Released with Work/Duty Limitations [facility] Chris [facility]EREZ[facility] ([facility]O t Neuromu sculosk eletal Clinic) [facility] Chris [facility]EREZ[facility] ([facility])(Occ upational Therapy) OUTPATIENT [id number] re-ck [place] tightne ss AMEE BOYD R 08/02 Released w/o Limitations [facility] Chris [facility] ([facility]O ccupati onal Therapy ) [facility] Chris [facility]ZB ([facility])(Sco tt [facility] Tm Blue) OUTPATIENT [id number] 48 hr f/u reg/per ÁNGEL Ulloa 01/24 Released w/o Limitations [facility] Chris JEREZB ([facility]S cott [facility] T[facility] Blue) [facility] Chris [facility] ([facility]Sco tt [facility] T[facility] Blue) OUTPATIENT [id number] MERY VARGHESE 05/23 Released w/o Limitations [facility] Chris [facility] ([facility]S cott [facility] T[facility] Blue) [facility] [employer] ([facility]Sco tt [facility] T[facility] Blue) OUTPATIENT [id number] hip DEBORAH MARLEY 02/06 Released w/o Limitations [facility] [employer] ([facility]S cott [facility] T[facility] Blue) [address] [place] [address] [employer] ([facility]Sco tt [facility] Tm Blue) OUTPATIENT [id number] hip problem JORGE YOUSIF 05/22 Released w/o Limitations [facility] Chris [facility] ([facility]S vanna [facility] Tm Blue) Procedures Combined list of: 1) Procedures from Department of Veterans Affairs facilities going back up to thelast 18 months, not all VA non-surgical procedures are included; 2) All procedures from the Department of Defense facilities. Procedure Procedure Type Code Date Perfomer Comments Sour e Incision And Drainage Of Skin Absce , Simple Incision And Drainage Of Skin Abscess, Simple 04810 01/25/2005 ÁNGEL LEIVA [facility] Training And Self-Care Skills Training And Self-Care Skills 16497 08/03/2004 AMEE INGRAM [facility] Occupational Therapy Evaluation Occupational Therapy Evaluation 50003 07/16/2004 MARTY ALBERTO [facility] Training And Self-Care Skills Training And Self-Care Skills 71388 07/10/2004 AMEE INGRAM [facility] INCISION AND DRAINAGE OF ABSCESS (EG, CARBUNCLE, SUPPURATIVE HIDRADENITIS, CUTANEOUS OR SUBCUTANEOUS ABSCESS, CYST, FURUNCLE, OR PARONYCHIA); SIMPLE OR SINGLE 01/24/2005 DoD SELF-CARE/HOME MANAGMENT TRAIN (EG,ACT OF DAILY [...] MINUTES 07/05/2004 DoD OCCUPATIONAL THERAPY EVALUATION 07/04/2004 DoD Social History Combined list of available smoking, tobacco, and other social history from Department of Defense and Veterans Affairs facilities. Social History Type Response Date Comment Sour e This section is an empty social history section. [facility]
--- OUTSIDE RECORDS SUMMARY | 2025-06-23 13:03 | XMS_ITS | Clinical Summary ---
Author Organization [facility] [employer] Address [address] [place] [address] Care Team Providers Care Door Furring Installer Name Role Phone Unavailable Primary Care Provider Unavailabl e Source Comments [facility] [employer],non-owned Affiliates and Associated Physician Practices is amultiple site organization consisting of ambulatory clinics and hospital sitesin [place], [place], [place] and [place]. This disclosure is being madepursuant to the Care Everywhere program and may not contain all information available regarding this patient. Last updated 18.[facility] [employer] Allergies No known active allergies Medications * Be aware that medications may not be up to date on this document. Alwaysverify current medications with the patient. No known [...] Recorded Sex Assigned at Not on file Legal Sex Male 2:21 PM CDT Gender Identity Not on file Sexual Orientation [...] 8:44 AM CDT Height 181.6 cm (5' 11.5) 04/11/2015 8:44 AM CD T Body Mass [...] VACCINE (1 - 2023-2 5 season) 2024 DEPRESSION SCREENING 11/03/2024 INFLUENZA VACCINE (#1) 2025 Respiratory Syncytial Virus (RSV) Vaccine Pt: or [...] to complete this topic MENINGOCOCCAL (Group B) VACC INE SHARED DECISION-MAKING Aged Out No longer eligibl e based on patient's age to complete this topic MENINGOCOCCAL GROUPS A/C/Y/W VACCINE Aged Out No longer eligible b ased on patient's age to complete this topic Insurance [id number] [place] [address]
== END 2025-06-23 12:59 | disposition home or self-care (01) ==
LOC: ANHAUDIO 12:59
PROVIDERS: PCP Internal Medicine; Visit Provider Otolaryngology
DX: J34.2 Deviated nasal septum (principal); J31.0 Chronic rhinitis; H90.3 Sensorineural hearing loss, bilateral
CPT/HCPCS: 92557; 92567

== ENCOUNTER 2025-09-01 09:58 | Outpatient (CLI) | payer MEDICARE, OTHER, SELFPAY ==
--- OUTSIDE RECORDS SUMMARY | 2025-09-01 10:56 | XMS_ITS | Clinical Summary ---
Author Organization [facility] [employer] Address [address] [place] [address] Care Team Providers Care Tobacco Prevention Health Educator Name Role Phone Unavailable Primary Care Provider Unavailabl e Source Comments [facility] [employer],non-owned Affiliates and Associated Physician Practices is amultiple site organization consisting of ambulatory clinics and hospital sitesin [place], [place], [place] and [place]. This disclosure is being madepursuant to the Care Everywhere program and may not contain all information available regarding this patient. Last updated 18.[facility] [employer] Allergies No known active allergies Medications * [...] (1 of 2) 2007 AAA SCREENING 2022 DEPRESSION SCREENING 11/03/2024 COVID-19 VACCINE (1 - 2023-2 5 season) 2025 INFLUENZA VACCINE (#1) 2025 Respiratory Syncytial Virus [...] age to complete this topic Insurance [id number] [place] [address]
[2025-09-01 19:01] LABS: Hematocrit 45.3 % (42.0-52.0); Hemoglobin 15.3 g/dL (14.0-18.0); Immature Granulocyte Percent A 0.8 % (0-0.5); Immature Platelet Fraction Pct 2.8 % (0.9-11.2); Lymphocytes Absolute Auto 1.76 K/mm3 (0.9-3.2); Mean Corpuscular HGB Conc 33.8 g/dl (32-36); Mean Corpuscular Hemoglobin 28.6 pg (26-34); Mean Corpuscular Volume 84.7 fl (80-100); Nucleated Red Blood Cells Absolute Auto 0.000 K/mm3 (0.0-0.012); Nucleated Red Blood Cells Perc 0.0 % (0.0-0.2); Platelet Count Result 221 k/mm3 (150-375); Red Blood Count 5.35 M/mm3 (4.6-6.20); White Blood Count 7.6 K/mm3 (4.5-10.0)
[2025-09-01 19:22] LABS: Alanine Aminotransferase 26 U/L (6-50); Albumin Level 4.3 g/dL (3.5-5.1); Alkaline Phosphatase 85 U/L (38-126); Anion Gap 7 mmol/L (4-12); Aspartate Amino Transferase 42 U/L (17-59); Bilirubin,Total 0.6 mg/dL (0.2-1.3); Blood Urea Nitrogen 14 mg/dL (9-20); Calcium 8.8 mg/dL (8.4-10.2); Carbon Dioxide 27 mmol/L (22-30); Chloride 93 mmol/L (98-107); Cholesterol 128 mg/dL (0-200); Estimated Glomerular Filt Rate > 60; Glucose 117 mg/dL (65-110); HDL Direct 35 mg/dL; Potassium 5.1 mmol/L (3.4-5.0); Sodium 127 mmol/L (137-145); Total Protein 7.4 g/dL (6.3-8.2); Triglycerides 110 mg/dL (<150)
[2025-09-01 19:44] LABS: Hemoglobin A1C 6.1 % (<5.7)
[2025-09-01 20:11] LABS: Prostate Specific Antigen 2.1 ng/mL (< OR = 4.0)
== END 2025-09-01 09:59 | disposition home or self-care (01) ==
LOC: ANHGOSHLAB 09:59
PROVIDERS: PCP Internal Medicine; Visit Provider Internal Medicine
DX: E11.9 Type 2 diabetes mellitus without complications (principal); I10 Essential (primary) hypertension; E22.2 Syndrome of inappropriate secretion of antidiuretic hormone; J84.112 Idiopathic pulmonary fibrosis; Z12.5 Encounter for screening for malignant neoplasm of prostate
CPT/HCPCS: 36415; 80053; 80061; 82172; 83036; 84153; 85025; 85055; G0103

== ENCOUNTER 2025-10-11 08:57 | Outpatient (CLI) | payer MEDICARE, OTHER, SELFPAY ==
[2025-10-11 13:11] LABS: Anion Gap 7 mmol/L (4-12); Blood Urea Nitrogen 13 mg/dL (9-20); Calcium 8.8 mg/dL (8.4-10.2); Carbon Dioxide 26 mmol/L (22-30); Chloride 98 mmol/L (98-107); Estimated Glomerular Filt Rate > 60; Glucose 128 mg/dL (65-110); Potassium 4.7 mmol/L (3.4-5.0); Sodium 131 mmol/L (137-145)
== END 2025-10-11 08:58 | disposition home or self-care (01) ==
LOC: ANHGOSHLAB 08:58
PROVIDERS: PCP Internal Medicine; Visit Provider Internal Medicine
DX: E87.1 Hypo-osmolality and hyponatremia (principal)
CPT/HCPCS: 36415; 80048